=== PATIENT | male | born 1945 | race African-American/Black ===

== ENCOUNTER → 2019-02-13 | Outpatient (CLI) | payer MEDICARE, OTHER ==
[~2019-02-13] MED LIST: ATORVASTATIN CA20 MG PO; IOPAMIDOL 370 MG/ML 200 ML INFUS..BTL INJ ONE; LISINOPRIL10 MG PO; METFORMIN HCL500 MG PO; SODIUM CHLORIDE 0.9% 50ML 50 ML ONE; TAMSULOSIN HCL0.4 MG PO
[2019-02-13 09:09] LABS: BLOOD UREA NITROGEN 16 mg/dL (7-26); BUN/CREATININE RATIO 14 (6-25); CREATININE, SERUM 1.12 mg/dL (0.72-1.25); EST GLOMERULAR FILTRATION RATE > 60 ML/MIN (60-)
--- NOTE | 2019-02-13 11:09 | Diagnostic Imaging Report ---
EXAMINATION: CT of the chest with contrast, PE protocol. TECHNIQUE: Spiral CT images of the chest were performed from the lung apices through the level of the adrenal glands after the IV administration of 100 cc of Isovue-[id number]. Thin section reconstructions were obtained with special concentration on the pulmonary arteries. Technique modification was utilized to maintain the lowest dose possible to the patient. DLP: 438.59 mGy-cm COMPARISON: <none> CLINICAL HISTORY:Chest pain DISCUSSION: Lungs: No filling defects are identified in the main, right or left pulmonary arteries to their segmental and subsegmental levels, to suggest pulmonary embolism. The tracheobronchial tree is normal. Airways: <The major airways are clear.> Pleura: <There is no evidence of pleural effusion or pneumothorax.> Heart and mediastinum: <The heart and the mediastinum are normal.> Both pulmonary arteries measure 2.1 cm. No adenopathy. Abdomen: There is a 2 cm upper pole right renal cyst and a 3.1 cm left upper pole renal cyst. Bones and soft tissues: Degenerative changes of the spine. No soft tissue abnormality. IMPRESSION: 1. No CTA evidence of pulmonary emboli. 2. Bilateral upper pole renal cysts. Signed by: Dr. Bharat Pelayo DO on 02/13/2019 11:06 AM
== END ==
LOC: CT 07:14
PROVIDERS: ATTEND Internal Medicine
DX: R06.02 Shortness of breath (principal); N28.1 Cyst of kidney, acquired
CPT/HCPCS: 36415; 71260; 82565; 84520; Q9967